=== PATIENT | female | born 1955 | race Caucasian/White ===

== ENCOUNTER 2016-05-29 13:00 | Outpatient (CLI) | payer OTHER | END 2016-05-29 23:00 | LOC: RT SRH 13:00 | PROC: 4A12X45 Monitoring of Cardiac Electrical Activity, Ambulatory, External Approach (ICD-10-PCS; principal; 2016-05-29) | DX: I47.1 Supraventricular tachycardia (principal); I49.3 Ventricular premature depolarization ==